=== PATIENT | female | born 1970 | race Two or more races ===

== ENCOUNTER 2018-06-17 18:21 | Emergency (ER) | payer MEDICAID ==
[~2018-06-17] VITALS: Ht 160 cm; Wt 71.7 kg
[2018-06-17 18:31] VITALS: BP 137/73
[2018-06-17] MEDS ORDERED: ACETAMINOPHEN EXTRA STRENGTH 500 MG TAB PO ONE (18:35)
[2018-06-17] MEDS ORDERED: KETOROLAC 30 MG/ML VIAL IVP ONE (18:55)
[2018-06-17 19:13] LABS: BASOPHILS % (AUTO) 0.1 % (0.0-2.0); EOSINOPHILS % (AUTO) 0.3 % (0.0-4.0); HEMOGLOBIN 11.6 g/dL (12.0-16.0); LYMPHOCYTES # (AUTO) 0.3 K/uL (2.5-16.5); LYMPHOCYTES % (AUTO) 2.8 % (20.5-51.1); MEAN CORPUSCULAR HEMOGLOBIN 28 pg (27-31); MEAN CORPUSCULAR HGB CONC 33 g/dL (33-37); MONOCYTES # (AUTO) 0.4 K/uL (0.8-1.0); MONOCYTES % (AUTO) 3.9 % (1.7-9.3); NEUTROPHILS # (AUTO) 9.2 K/uL (1.8-7.7); NEUTROPHILS % (AUTO) 92.9 % (42.2-75.2); PLATELET COUNT (AUTO) 121 K/uL (140-450); RED BLOOD CELL COUNT(AUTO) 4.08 MIL/uL (4.20-5.40); RED CELL DISTRIBUTION WIDTH 13.4 % (11.6-13.7); WHITE BLOOD COUNT (AUTO) 9.9 K/uL (4.8-10.8)
[2018-06-17 19:21] LABS: CREATININE 1.7 mg/dL (0.6-1.3)
[2018-06-17 19:27] LABS: ALBUMIN 3.2 g/dL (3.4-5.0); TOTAL BILIRUBIN 0.5 mg/dL (0.0-1.0)
--- NOTE | 2018-06-17 19:35 | NUR ---
Dr. Mcghee evaluating patient at bedside.
--- NOTE | 2018-06-17 19:35 | NUR ---
PT TO ED WITH C/O LLQ ABD PAIN RADIATING TO LOWER BACK X 2 DYAS. PT REPORTS PAIN INTERMITTENT. NO ABD DISTENTION. BOWEL SOUNDS ACTIVE. DENIES PAIN ON PALPATION. PT PLACED INTO BED, PENDING MD FAUSTIN.
--- NOTE | 2018-06-17 20:20 | NUR ---
PT REPORTS RELIEF S/P TORADOL ADMIN. WILL CONTINUE TO MONITOR AND ASSESS.
--- NOTE | 2018-06-17 20:27 | NUR ---
Kirsten rivas in [facility] - 06/17/18 at 2028 by JOJO PT TAKEN TO BED 7
--- NOTE | 2018-06-17 20:28 | NUR ---
PT TAKEN TO CT
--- NOTE | 2018-06-17 20:38 | NUR ---
PT RETURN FROM CT
[2018-06-17 20:51] LABS: APPEARANCE,URINE CLEAR (CLEAR); BILIRUBIN,URINE NEGATIVE (NEGATIVE); BLOOD, URINE 1+ (NEGATIVE); COLOR,URINE YELLOW (YELLOW); LEUKOCYTE ESTERASE ,URINE 2+ (NEGATIVE); NITRITE, URINE NEGATIVE (NEGATIVE); PH,URINE 6.5 (5.0-9.0); UGLUCOSE NEGATIVE (NEGATIVE)
[2018-06-17 21:09] LABS: RBC,URINE 0-5 /HPF (0-5); WBC,URINE >25 (MANY) /HPF (0-5)
[2018-06-17] MEDS ORDERED: cefTRIAXone 1,000 MG VIAL ONE (21:34)
[2018-06-17 21:58] VITALS: BP 129/74
--- NOTE | 2018-06-17 21:58 | NUR ---
Patient discharged with v/s stable. Written and verbal after care instructions given and explained. Patient alert, oriented and verbalized understanding of instructions. Ambulatory with steady gait. All questions addressed prior to discharge. ID band removed. Patient advised to follow up with PMD. Rx of MACROBID, MOTRIN given. Patient educated on indication of medication including possible reaction and side effects. Opportunity to ask questions provided and answered.
== END 2018-06-17 21:58 | disposition home or self-care (01) ==
LOC: MED 18:21
DX: N39.0 Urinary tract infection, site not specified (principal); E78.5 Hyperlipidemia, unspecified; E11.9 Type 2 diabetes mellitus without complications; I10 Essential (primary) hypertension
CPT/HCPCS: 36415; 74176; 80053; 81001; 81025; 83605; 85025; 87040; 87086; 96365; 96375; 99283; J0696; J1885; 87186

== ENCOUNTER 2021-01-24 13:57 | Inpatient (IN) | payer OTHER ==
[~2021-01-24] VITALS: Ht 160 cm; Wt 73.5 kg
[2021-01-24 14:00] VITALS: BP 168/75
--- NOTE | 2021-01-24 14:07 | NUR ---
PT AMBULATED TO ER BED 11 WITH WALKER ASSISTANCE.
--- NOTE | 2021-01-24 14:17 | NUR ---
50 Y/O FEMALE C/O LEFT FOOT DISCOMFORT X 4 DAYS. PT NOTED TO HAVE REDNESS AND OPEN WOUND WITH YELLOW DISCOLORATION. PT STATES SHE SAW KENO WRITER [id number] AND TOLD SHE HAD NO INFECTION AT THE TIME. DENIES FEVER/CHILLS. DENIES N/V/D. PMH: HLD, HTN, DM NKA
[2021-01-24] MEDS ORDERED: cefTRIAXone 2,000 MG in DEXTROSE 5% 100 ML IV ONE (14:20)
[2021-01-24] MEDS ORDERED: VANCOMYCIN 1,000 MG in DEXTROSE 5% 250 ML IV ONE (14:20)
--- NOTE | 2021-01-24 14:22 | NUR ---
NETWORK ARCHITECT AT PT BEDSIDE.
[2021-01-24] MEDS ORDERED: NACL 0.9% 1,000 ML IV ONE (14:25)
--- NOTE | 2021-01-24 14:39 | NUR ---
MANAGER TELECOM AT PT BEDSIDE.
[2021-01-24 15:04] LABS: BASOPHILS % (AUTO) 0.4 % (0.0-2.0); EOSINOPHILS # (AUTO) 0.1 K/uL (0-0.4); HEMATOCRIT 35.3 % (36-48); HEMOGLOBIN 11.6 g/dL (12.0-16.0); LYMPHOCYTES # (AUTO) 0.8 K/uL (2.5-16.5); MEAN CORPUSCULAR HEMOGLOBIN 27 pg (27-31); MEAN CORPUSCULAR HGB CONC 33 g/dL (33-37); MEAN CORPUSCULAR VOLUME 81.7 fL (80-94); MONOCYTES # (AUTO) 0.4 K/uL (0.8-1.0); MONOCYTES % (AUTO) 3.2 % (1.7-9.3); NEUTROPHILS % (AUTO) 88.4 % (42.2-75.2); PLATELET COUNT (AUTO) 259 K/uL (140-450); RED BLOOD CELL COUNT(AUTO) 4.32 MIL/uL (4.20-5.40); RED CELL DISTRIBUTION WIDTH 15.3 % (11.6-13.7); WHITE BLOOD COUNT (AUTO) 11.3 K/uL (4.8-10.8)
--- NOTE | 2021-01-24 15:17 | NUR ---
IV 20GA RT HAND, BLOOD/UA SENT TO LAB X2 BLOOD FOR C&S, NSR W/O ECT, VSS, AT THS TIME.
[2021-01-24] MEDS ORDERED: cefTRIAXone 2,000 MG VIAL ONE (15:20)
[2021-01-24 15:26] LABS: ALBUMIN 3.7 g/dL (3.4-5.0); ANION GAP 16.5 (8-16); CARBON DIOXIDE 24.8 mmol/L (21-32); CREATININE 1.1 mg/dL (0.6-1.3); POTASSIUM 4.3 mmol/L (3.5-5.1); TOTAL BILIRUBIN 0.7 mg/dL (0.0-1.0)
[2021-01-24] MEDS ORDERED: VANCOMYCIN 1,000 MG VIAL ONE (15:40)
[2021-01-24] MEDS ORDERED: ALBU117P INH (16:28)
[2021-01-24] MEDS ORDERED: MONT10TA35 PO (16:28)
[2021-01-24] MEDS ORDERED: OMEP20EC11 PO (16:28)
[2021-01-24] MEDS ORDERED: BECL10.62 INH (16:28)
[2021-01-24] MEDS ORDERED: ENAL-197 PO (16:28)
[2021-01-24] MEDS ORDERED: AZEL137S8 NS (16:28)
[2021-01-24] MEDS ORDERED: ATOR40TA PO (16:28)
[2021-01-24] MEDS ORDERED: FURO-572 PO (16:28)
[2021-01-24] MEDS ORDERED: FERR325E14 PO (16:28)
[2021-01-24] MEDS ORDERED: CARV25TA PO (16:28)
[2021-01-24] MEDS ORDERED: INSU100V3 SQ (16:28)
[2021-01-24] MEDS ORDERED: GABA300C PO (16:28)
[2021-01-24] MEDS ORDERED: GLIP5TER PO (16:28)
[2021-01-24] MEDS ORDERED: MEDR5TAB PO (16:28)
[2021-01-24] MEDS ORDERED: ACET-10509 PO (16:28)
[2021-01-24] MEDS ORDERED: ASPI-1822 PO (16:28)
[2021-01-24] MEDS ORDERED: DOCU-299 PO (16:28)
[2021-01-24] MEDS ORDERED: INSU3SUS16 SC (16:28)
--- NOTE | 2021-01-24 17:00 | NUR ---
PT RESTING, VISIBLE EQUAL RISE AND FALL OF CHEST, VSS, WILL CONTINUE TO MONITOR.
[2021-01-24] MEDS ORDERED: MORPHINE SULFATE 4 MG/ML SYR IVP ONE (18:10)
[2021-01-24] MEDS ORDERED: ONDANSETRON 4 MG/2 ML VIAL IVP ONE (18:10)
[2021-01-24] MEDS ORDERED: MORPHINE SULFATE 4 MG/ML SYR ONE (18:11)
--- NOTE | 2021-01-24 19:17 | NUR ---
REPORT RECEIVED FROM BRITT VILLAVICENCIO FOR CONTINUITY OF PT CARE AT THIS TIME.
--- NOTE | 2021-01-24 19:35 | NUR ---
GAVE REPORT TO BRITT CARDOZO. TRANSFER OF CARE AT THIS TIME.
[2021-01-24] MEDS ORDERED: ACETAMINOPHEN 325 MG TAB PO PRN (19:50)
[2021-01-24] MEDS ORDERED: VANCOMYCIN PER PHARMACY MC PRN (20:00)
[2021-01-24] MEDS ORDERED: DEXTROSE 50% 50 ML SYR IVP PRN (20:05)
--- NOTE | 2021-01-24 20:13 | NUR ---
PT LAYING SUPINE IN BED LOCKED INLOWEST POSITION W X2 SIDERAILS UP FOR PT SAFETY. PT REPORTS PAIN IMPROVEMENT TO 5/10. PT REPORTS FEELING BETTER,REQUESTS A SECOND BLANKET. SECOND BLANKET PROVIDED. VSS. BREATHING EVEN AND UNLABORED. NAD NOTED, WILL CONTINUE TO MONITOR.
[2021-01-24] MEDS: NACL 0.9% 1,000 ML IV SCH (21:09)
[2021-01-24] MEDS: BLOOD GLUCOSE MONITORING 1 DEV DEV FS SCH (21:12)
--- NOTE | 2021-01-24 23:37 | NUR ---
PT APPEARS TO BE RESTING W EYES CLOSED SUPINE, BED LOCKED IN LOWEST POSITION, X1 SIDERAIL UP. BREATHING EVEN AND UNLABORED. VSS. NAD NOTED, WILL CONTINUE TO MONITOR.
--- NOTE | 2021-01-25 01:23 | NUR ---
PT AMBULATED TO BATHROOM W STEADY GAIT, HOLDING IV POLE.
--- NOTE | 2021-01-25 01:50 | NUR ---
PT C/O 7/10 L FOOT PAIN + NAUSEA. PT DOES NOT WANT MORPHINE, PT REQUESTING ZOFRAN AND TYLENOL. PT MEDICATED FOR PAIN AND NAUSEA.
[2021-01-25] MEDS: ONDANSETRON 4 MG/2 ML VIAL IVP PRN ×3 (01:59→22:02)
[2021-01-25] MEDS ORDERED: VANCOMYCIN 1GM/DEXT 5% PREMIX 200 ML IV SCH (02:00)
[2021-01-25] MEDS ORDERED: VANCOMYCIN 1,000 MG VIAL ONE (02:15)
--- NOTE | 2021-01-25 04:05 | NUR ---
PT REPORTS PAIN AND NAUSEA IMPROVEMENT AT THIS TIME. PT REPORTS PAIN AT IV SITE TO R HAND AND WANTS IT REMOVED. IV REMOVED, CATHETER INTACT. NEW IV ESTABLISHED TO R FOREARM 20G.
--- NOTE | 2021-01-25 06:02 | NUR ---
PT APPEARS TO BE RESTING W EYES CLOSED IN SUPINE POSITION W BREATHING EVEN AND UNLABORED. BED LOCKED IN LOWEST POSITION W X1 SIDERAIL UP HOB SLIGHTLY ELEVATED. VSS. NAD NOTED, WILL CONTINUE TO MONITOR.
[2021-01-25] MEDS: NACL 0.9% 1,000 ML IV SCH ×3 (06:46→19:50)
[2021-01-25 07:03] LABS: BASOPHILS # (AUTO) 0.1 K/uL (0.00-0.22); BASOPHILS % (AUTO) 0.6 % (0.0-2.0); EOSINOPHILS # (AUTO) 0.1 K/uL (0-0.4); EOSINOPHILS % (AUTO) 0.8 % (0.0-4.0); HEMATOCRIT 29.8 % (36-48); LYMPHOCYTES # (AUTO) 1.1 K/uL (2.5-16.5); MEAN CORPUSCULAR HEMOGLOBIN 27 pg (27-31); MEAN CORPUSCULAR HGB CONC 34 g/dL (33-37); MEAN CORPUSCULAR VOLUME 81.1 fL (80-94); MONOCYTES # (AUTO) 0.5 K/uL (0.8-1.0); MONOCYTES % (AUTO) 4.6 % (1.7-9.3); PLATELET COUNT (AUTO) 233 K/uL (140-450); RED BLOOD CELL COUNT(AUTO) 3.68 MIL/uL (4.20-5.40); RED CELL DISTRIBUTION WIDTH 15.1 % (11.6-13.7); WHITE BLOOD COUNT (AUTO) 10.7 K/uL (4.8-10.8)
--- NOTE | 2021-01-25 07:16 | NUR ---
Pt report given to BRITT HEWITT AND DUSTY CHÁVEZ. Transfer of care at this time.
[2021-01-25 07:21] LABS: ANION GAP 15.6 (8-16); CARBON DIOXIDE 21.7 mmol/L (21-32); CREATININE 0.9 mg/dL (0.6-1.3); POTASSIUM 4.3 mmol/L (3.5-5.1)
--- NOTE | 2021-01-25 07:22 | NUR ---
REPORT RECIEVED FROM BRITT CARDOZO FOR TRANSFER OF CARE
--- NOTE | 2021-01-25 07:23 | NUR ---
REPORT RECEIVED FROM BRITT CARDOZO FOR CONTINUITY OF CARE.
[2021-01-25] MEDS: BLOOD GLUCOSE MONITORING 1 DEV DEV FS SCH ×4 (07:42→21:00)
[2021-01-25] MEDS: INSULIN LISPRO SLIDING SCALE 100 UNITS/ML VIAL SUBQ PRN ×4 (07:51→21:55)
[2021-01-25] MEDS: ENOXAPARIN 40 MG/0.4 ML SYR SUBQ SCH (09:06)
--- NOTE | 2021-01-25 09:07 | NUR ---
PATIENT IS EATING IN BED, NO DISTRESS NOTED ALL NEEDS MET AT THIS TIME.
--- NOTE | 2021-01-25 09:24 | NUR ---
DR GRAY EVALUATING PT AT BEDSIDE
--- NOTE | 2021-01-25 11:48 | NUR ---
Patient will be admitted to care of DR. GRAY. Admited to TELE. Will go to room 118. Belongings list completed. Report to BRITT ALFRED . Addendum: 01/25/21 at 1212 by [email or web address] PATIENT TAKEN VIA FELICIA, ACCOMPANIED BY KISHAN MEDRANO.
--- NOTE | 2021-01-25 12:35 | NUR ---
DR LARSON, PODIATRY AT BEDSIDE PREPARING PATIENT FOR I&D
[2021-01-25 12:43] LABS: MAGNESIUM 1.8 mg/dL (1.8-2.4); PHOSPHORUS 3.4 mg/dL (2.5-4.9)
[2021-01-25 12:45] VITALS: BP 150/75
[2021-01-25] MEDS: VANCOMYCIN 1,000 MG in DEXTROSE 5% 250 ML IV SCH (13:25)
--- NOTE | 2021-01-25 14:58 | NUR ---
PT COMPLAINED OF NAUSEA. ADMINISTERED ZOFRAN PRN PER MD ORDERED
--- NOTE | 2021-01-25 15:30 | NUR ---
PATIENT HAS BEEN SCREENED AND CATEGORIZED MODERATE NUTRITION RISK. PATIENT WILL BE SEEN WITHIN 3-5 DAYS OF ADMISSION. 01/25/21 01/29/21 REFERRAL RECEIVED NOT APPLICABLE [address]
[2021-01-25 16:00] VITALS: BP 156/82
--- NOTE | 2021-01-25 16:15 | NUR ---
CHECKED ON PATIENT. PT IS STABLE. NO DISTRESS NOTED. WILL CONTINUE TO MONITOR.
--- NOTE | 2021-01-25 19:40 | NUR ---
ENDORSED TO SURVEY FIELD TECHNICIAN NURSE FOR CONTINUITY OF CARE. PT IS STABLE.
--- NOTE | 2021-01-25 19:45 | NUR ---
RECEIVED REPORT FROM AM NURSE FOR CONTINUITY OF CARE. PT AWAKE, ALERT NO C/O PAIN.RESPIRATIONS EVEN AND UNLABORED. ALL SAFETY MEASURES IN PLACE. WILL CONTINUE TO MONITOR.
[2021-01-25 20:00] VITALS: BP 156/78
--- NOTE | 2021-01-25 21:50 | NUR ---
PT HAD SOME FACIAL GRIMACING. C/O NAUSEA. MEDICATED WITH ZOFRAN PRN. CALL LIGHT WITHIN REACH. ALL SAFETY MEASURES IN PLACE.
[2021-01-26] VITALS: BP 138/69
[2021-01-26] MEDS ORDERED: PIPERACILLIN/TAZOBACTAM 3.375 GM VIAL IV ONE ×2 (00:14→06:05)
[2021-01-26] MEDS: MORPHINE SULFATE 2 MG/ML SYR IVP PRN ×3 (00:21→20:56)
[2021-01-26] MEDS: PIPERACILLIN/TAZOBACTAM 3.375 GM in DEXTROSE 5% 50 ML IV SCH ×5 (00:44→23:35)
--- NOTE | 2021-01-26 01:03 | NUR ---
PT AWAKE UP TO BATHROOM WITH WALKER AND I PERSON ASSIST. SCHEDULED ABX HUNG. NO C/O PAIN OR DISTRESS. CALL LIGHT WITHIN REACH. ALLSAFETY MEASURES IN PLACE.
--- NOTE | 2021-01-26 03:00 | NUR ---
VANCOCIN HUNG AND RUNNING ORDERED.
[2021-01-26] MEDS: VANCOMYCIN 1,000 MG in DEXTROSE 5% 250 ML IV SCH ×2 (03:41→14:37)
[2021-01-26] MEDS: NACL 0.9% 1,000 ML IV SCH ×3 (03:50→23:34)
[2021-01-26 04:00] VITALS: BP 134/66
--- NOTE | 2021-01-26 06:45 | NUR ---
PT C/O CURRENT IV SITE NEW IV SITE 22G ON LEFT F/A PROVIDED. PT GIVEN MORPHINE FOR LEFT FOOT. ZOSYN HUNG AND RUNNING ORDERED. V/S STABLE. PT FINGERSTICK TAKEN HUMALOG COVERAGE PROVIDED. ALL ORDERED PRECAUTIONS IN PLACE
[2021-01-26] MEDS: INSULIN LISPRO SLIDING SCALE 100 UNITS/ML VIAL SUBQ PRN ×3 (07:13→21:10)
[2021-01-26] MEDS: BLOOD GLUCOSE MONITORING 1 DEV DEV FS SCH ×4 (07:15→21:07)
[2021-01-26 07:28] LABS: BASOPHILS % (AUTO) 0.3 % (0.0-2.0); EOSINOPHILS # (AUTO) 0.1 K/uL (0-0.4); EOSINOPHILS % (AUTO) 1.4 % (0.0-4.0); HEMATOCRIT 28.7 % (36-48); HEMOGLOBIN 9.7 g/dL (12.0-16.0); MEAN CORPUSCULAR HEMOGLOBIN 27 pg (27-31); MEAN CORPUSCULAR HGB CONC 34 g/dL (33-37); MEAN CORPUSCULAR VOLUME 81.2 fL (80-94); MONOCYTES # (AUTO) 0.5 K/uL (0.8-1.0); MONOCYTES % (AUTO) 6.8 % (1.7-9.3); NEUTROPHILS # (AUTO) 6.2 K/uL (1.8-7.7); NEUTROPHILS % (AUTO) 78.5 % (42.2-75.2); PLATELET COUNT (AUTO) 229 K/uL (140-450); RED BLOOD CELL COUNT(AUTO) 3.53 MIL/uL (4.20-5.40); RED CELL DISTRIBUTION WIDTH 14.9 % (11.6-13.7); WHITE BLOOD COUNT (AUTO) 7.9 K/uL (4.8-10.8)
--- NOTE | 2021-01-26 07:40 | NUR ---
RECEIVED PATIENT REPORT FROM QUALITY SPECIALIST NURSE FOR CONTINUITY OF CARE. AOX4, RESPIRATIONS EVEN AND UNLABORED. NO DISTRESS NOTED. S/P I&D ON THE LEFT FOOT. PODIATRY IS FOLLOWING. IV SITE ON RFA 20G AND LFA 22G INTACT AND PATENT. PLAN OF CARE DISCUSSED. ISOLATION PRECAUTIONS IN PLACE. SAFETY PRECAUTIONS IN PLACE. CALL LIGHT WITHIN REACH. WILL CONTINUE TO MONITOR.
[2021-01-26 07:52] LABS: ANION GAP 12.8 (8-16); CARBON DIOXIDE 25.6 mmol/L (21-32); CREATININE 0.9 mg/dL (0.6-1.3); POTASSIUM 4.4 mmol/L (3.5-5.1)
[2021-01-26 08:00] VITALS: BP 123/62
--- NOTE | 2021-01-26 08:31 | NUR ---
NUCLEAR MED TECH AT BEDSIDE TO TRANSFER PATIENT FOR BONE SCAN PROCEDURE.
--- NOTE | 2021-01-26 08:32 | NUR ---
WOUND CARE NURSE AT BEDSIDE.
--- NOTE | 2021-01-26 08:34 | NUR ---
WOUND CARE CONSULT NOT DONE. PT. SEEN BY IN HOUSE PODIATRY TEAM.
[2021-01-26] MEDS ORDERED: PROPOFOL 200 MG/20 ML VIAL IV ONE (09:21)
[2021-01-26] MEDS: ENOXAPARIN 40 MG/0.4 ML SYR SUBQ SCH (09:53)
--- NOTE | 2021-01-26 10:00 | NUR ---
ALL SCHEDULED MEDS GIVEN. PT IS STABLE. NO DISTRESS NOTED. WILL CONTINUE TO MONITOR.
--- NOTE | 2021-01-26 10:00 | NUR ---
ECHOCARDIOGRAM IS BEING DONE ON PATIENT.
[2021-01-26 12:00] VITALS: BP 164/83
--- NOTE | 2021-01-26 12:50 | NUR ---
SPOKE TO DR. GARCIA AND SHE MENTIONED THAT PATIENT WILL BE HAVING A PROCEDURE AT OR TODAY.
--- NOTE | 2021-01-26 14:00 | NUR ---
NUCLEAR MED TECH AT BEDSIDE.
[2021-01-26 16:00] VITALS: BP 159/77
--- NOTE | 2021-01-26 16:45 | NUR ---
CHECKED ON PATIENT. PT IS STABLE. NO DISTRESS NOTED. WILL CONTINUE TO MONITOR.
[2021-01-26] MEDS: ONDANSETRON 4 MG/2 ML VIAL IVP PRN (18:56)
--- NOTE | 2021-01-26 19:50 | NUR ---
ENDORSED TO SECRETARIAL TEACHER NURSE FOR CONTINUITY OF CARE. PT IS STABLE.
[2021-01-26 20:00] VITALS: BP 137/69
--- NOTE | 2021-01-26 20:00 | NUR ---
Received patient from AM shift nurse. Patient is AA&O4 able to make needs known, denies chest pain or SOB. Chest rise is even and unlabored with CTA on RA. Normal heart sounds present. Active bowel sounds x4, denies pain with palpation. Wound is noted on Left foot that is wrapped clean dry and intact. Patient is pending a surgical procedure for her foot on AM shift and will be NPO at midnight. Call light is within reach, bed is locked in the lowest position with bed rails up. Will continue to monitor throughout the shift.
[2021-01-27] VITALS: BP 110/53
[2021-01-27] MEDS: VANCOMYCIN 1,000 MG in DEXTROSE 5% 250 ML IV SCH (02:00)
[2021-01-27] MEDS: NACL 0.9% 1,000 ML IV SCH ×3 (03:50→20:16)
[2021-01-27 04:00] VITALS: BP 128/67
[2021-01-27 05:38] LABS: BASOPHILS # (AUTO) 0.1 K/uL (0.00-0.22); BASOPHILS % (AUTO) 0.7 % (0.0-2.0); EOSINOPHILS # (AUTO) 0.1 K/uL (0-0.4); EOSINOPHILS % (AUTO) 1.5 % (0.0-4.0); HEMATOCRIT 28.2 % (36-48); HEMOGLOBIN 9.6 g/dL (12.0-16.0); LYMPHOCYTES # (AUTO) 0.8 K/uL (2.5-16.5); LYMPHOCYTES % (AUTO) 8.7 % (20.5-51.1); MEAN CORPUSCULAR HEMOGLOBIN 28 pg (27-31); MEAN CORPUSCULAR HGB CONC 34 g/dL (33-37); MEAN CORPUSCULAR VOLUME 81.2 fL (80-94); MONOCYTES # (AUTO) 0.6 K/uL (0.8-1.0); MONOCYTES % (AUTO) 6.5 % (1.7-9.3); NEUTROPHILS # (AUTO) 7.7 K/uL (1.8-7.7); NEUTROPHILS % (AUTO) 82.6 % (42.2-75.2); PLATELET COUNT (AUTO) 240 K/uL (140-450); RED BLOOD CELL COUNT(AUTO) 3.47 MIL/uL (4.20-5.40); WHITE BLOOD COUNT (AUTO) 9.3 K/uL (4.8-10.8)
[2021-01-27 05:47] LABS: ANION GAP 14.3 (8-16); CARBON DIOXIDE 23.5 mmol/L (21-32); CREATININE 1.4 mg/dL (0.6-1.3); POTASSIUM 3.8 mmol/L (3.5-5.1)
[2021-01-27] MEDS: PIPERACILLIN/TAZOBACTAM 3.375 GM in DEXTROSE 5% 50 ML IV SCH ×3 (05:57→17:47)
[2021-01-27] MEDS: BLOOD GLUCOSE MONITORING 1 DEV DEV FS SCH ×5 (06:31→20:21)
[2021-01-27 08:00] VITALS: BP 150/74
[2021-01-27] MEDS ORDERED: LIDOCAINE 1% 500 MG/50 ML VIAL ONE (08:33)
[2021-01-27] MEDS ORDERED: BUPIVACAINE-MPF 0.25% 30 ML VIAL INJ ONE (08:33)
[2021-01-27] MEDS ORDERED: BUPIVACAINE-MPF 0.5% 30 ML VIAL INJ ONE ×2 (08:38)
[2021-01-27] MEDS: ENOXAPARIN 40 MG/0.4 ML SYR SUBQ SCH (08:59)
--- NOTE | 2021-01-27 09:00 | NUR ---
Lovenox not administered. Patient off unit for procedure.
[2021-01-27] MEDS ORDERED: ONDANSETRON 4 MG/2 ML VIAL ONE (09:33)
[2021-01-27] MEDS ORDERED: fentaNYL citrate 0.05 MG/ML VIAL ONE (09:33)
[2021-01-27] MEDS ORDERED: METOCLOPRAMIDE 10 MG/2 ML INJ VIAL ONE (09:33)
[2021-01-27] MEDS: INSULIN LISPRO SLIDING SCALE 100 UNITS/ML VIAL SUBQ PRN ×4 (10:51→20:28)
--- NOTE | 2021-01-27 11:20 | NUR ---
Patient came back from OR. Bilateral foot dressings clean, dry, and intact.
[2021-01-27 12:00] VITALS: BP 156/74
[2021-01-27] MEDS: MORPHINE SULFATE 2 MG/ML SYR IVP PRN (15:21)
[2021-01-27 16:00] VITALS: BP 134/62
[2021-01-27] MEDS: HYDROcodone/APAP 5/325 MG 1 TAB TAB PO PRN ×2 (18:03→22:25)
[2021-01-27 20:00] VITALS: BP 123/66
--- NOTE | 2021-01-27 20:00 | NUR ---
RECEIVED BEDSIDE REPORT FROM DAY RN FOR CONTINUITY OF CARE . PT LAYING IN BED WATCHING TV DURING ROUNDS. PT NOT IN ANY DISTRESS AND NO COMPLAIN AT THIS TIME. BILATERAL FOOT DRESSINGS BOTH C/D/I. IVF INFUSING ORDERED. VSS, AFEBRILE, SATING 100% ON RA. SR ON COUTURE ALTERATIONS DRESSMAKER, HR-90. FALL PRECAUTION IMPLEMENTED. INSTRUCTED THE PT TO CALL FOR ASSISTANCE AT ALL TIMES. PT VERBALIZED UNDERSTANDING WITH THE POC. CALL LIGHT WITHIN REACH. WILL CONTINUE POC AND MONITORING.
[2021-01-27] MEDS: METOPROLOL 25 MG TAB PO SCH (20:18)
--- NOTE | 2021-01-27 22:00 | NUR ---
ALL DUE MEDS GIVEN AND PT TOLERATED IT WELL. NO COMPLAIN FROM THE PT. NO ADVERSE DRUG REACTION NOTED. WILL CONTINUE TO OBSERVE.
[2021-01-28] VITALS: BP 102/56
--- NOTE | 2021-01-28 | NUR ---
PT VITAL SIGNS STABLE, AFEBRILE, SATING 100% ON RA. SR ON FILLING SEPARATOR, HR- 83. NOT IN ANY DISTRESS AND NO COMPLAIN AT THIS TIME. CALL LIGHT WITHIN REACH. WILL CONTINUE OBSERVATION.
[2021-01-28] MEDS: PIPERACILLIN/TAZOBACTAM 3.375 GM in DEXTROSE 5% 50 ML IV SCH ×3 (00:22→13:55)
--- NOTE | 2021-01-28 02:00 | NUR ---
PT ASLEEP. VISIBLE CHEST RISE AND FALL NOTED. NOT IN ANY DISTRESS. SAFETY MEASURES IN PLACE. WILL CONTINUE TO OBSERVE.
[2021-01-28 04:00] VITALS: BP 118/57
--- NOTE | 2021-01-28 04:00 | NUR ---
PT VITAL SIGNS STABLE, AFEBRILE, SATING 100% ON RA. SR ON STUDENT SERVICES REP, HR- 85. NOT IN ANY DISTRESS AND NO COMPLAIN AT THIS TIME. CALL LIGHT WITHIN REACH. WILL CONTINUE OBSERVATION.
[2021-01-28] MEDS: NACL 0.9% 1,000 ML IV SCH ×2 (04:48→11:50)
--- NOTE | 2021-01-28 06:00 | NUR ---
NO ACUTE EVENT THROUGHOUT THE NIGHT. PATIENT STABLE NO SIGN AND SYMPTOMS OF DISTRESS NOTED. NO COMPLAIN AT THIS TIME. ALL NEEDS ATTENDED. CALL LIGHT WITHIN REACH. WILL ENDORSE THE PATIENT TO THE ONCOMING RN FOR CONTINUITY OF CARE.
[2021-01-28] MEDS: ONDANSETRON 4 MG/2 ML VIAL IVP PRN (06:22)
[2021-01-28] MEDS: BLOOD GLUCOSE MONITORING 1 DEV DEV FS SCH ×2 (06:32→11:30)
[2021-01-28 06:48] LABS: BASOPHILS % (AUTO) 0.5 % (0.0-2.0); EOSINOPHILS # (AUTO) 0.2 K/uL (0-0.4); EOSINOPHILS % (AUTO) 2.4 % (0.0-4.0); HEMATOCRIT 25.2 % (36-48); HEMOGLOBIN 8.5 g/dL (12.0-16.0); LYMPHOCYTES % (AUTO) 11.3 % (20.5-51.1); MEAN CORPUSCULAR HEMOGLOBIN 28 pg (27-31); MEAN CORPUSCULAR HGB CONC 34 g/dL (33-37); MEAN CORPUSCULAR VOLUME 82.3 fL (80-94); MONOCYTES # (AUTO) 0.5 K/uL (0.8-1.0); MONOCYTES % (AUTO) 5.4 % (1.7-9.3); NEUTROPHILS # (AUTO) 7.3 K/uL (1.8-7.7); NEUTROPHILS % (AUTO) 80.4 % (42.2-75.2); PLATELET COUNT (AUTO) 218 K/uL (140-450); RED BLOOD CELL COUNT(AUTO) 3.06 MIL/uL (4.20-5.40); RED CELL DISTRIBUTION WIDTH 14.8 % (11.6-13.7); WHITE BLOOD COUNT (AUTO) 9.1 K/uL (4.8-10.8)
--- NOTE | 2021-01-28 07:10 | NUR ---
RECEIVE REPORT FROM SEGMENTAL PAVER INSTALLER NURSE FOR CONTINUITY OF PATIENT CARE. PATIENT SLEEPING. NO ACUTE DISTRESS NOTED. BREATHING EVEN AND UNLABORED. ROOM AIR. CALL LIGHT WITHIN REACH. ALL SAFETY MEASURES IN PLACE. WILL CONTINUE TO MONITOR.
[2021-01-28 07:19] LABS: ANION GAP 14.7 (8-16); CARBON DIOXIDE 21.2 mmol/L (21-32); CREATININE 1.4 mg/dL (0.6-1.3); POTASSIUM 3.9 mmol/L (3.5-5.1)
[2021-01-28 08:00] VITALS: BP 150/73
--- NOTE | 2021-01-28 08:04 | NUR ---
ENDORSED PT TO DAY RN FOR CONTINUITY OF CARE. PATIENT STABLE. SIGNING OFF.
[2021-01-28] MEDS: METOPROLOL 25 MG TAB PO SCH (09:07)
[2021-01-28] MEDS: ENOXAPARIN 40 MG/0.4 ML SYR SUBQ SCH (09:08)
--- NOTE | 2021-01-28 09:09 | NUR ---
PATIENT AWAKE AND ALERT. NO ACUTE DISTRESS NOTED. BREATHING EVEN AND UNLABORED. SCHEDULED MEDICATION GIVEN. PATIENT ROOM AIR. CALL LIGHT WITHIN REACH. ALL SAFETY MEASURES IN PLACE. WILL CONTINUE TO MONITOR.
[2021-01-28] MEDS ORDERED: VANCOMYCIN 1,000 MG in DEXTROSE 5% 250 ML IV SCH (11:00)
--- NOTE | 2021-01-28 11:59 | NUR ---
PATIENT AWAKE AND ALERT. NO ACUTE DISTRESS NOTED. BREATHING EVEN AND UNLABORED. PATIENT ROOM AIR. CALL LIGHT WITHIN REACH. ALL SAFETY MEASURES IN PLACE. WILL CONTINUE TO MONITOR.
[2021-01-28 12:00] VITALS: BP 153/61
--- NOTE | 2021-01-28 12:00 | NUR ---
WOUND CARE EVALUATION NOTES: REASON FOR EVALUATION: BILATERAL FOOT DM ULCERS. WOUND ASSESSMENT COMPLETED ON THIS 50 Y/O MALE ADMITTED TO [facility] UNIT FOR BILATERAL DM FOOT ULCER. PATIENT IS FROM HOME. PAST MEDICAL HISTORY INCLUDES HYPERTENSION, HLD, ASTHMA, DM II. ALL ABOVE INFORMATION WAS OBTAINED FROM THE ADMISSION H&P. LABS ARE WBC 9.1, H/H 8.5/25.2, GLUCOSE 218. PATIENT IS AAOX4, VERBAL, ABLE TO AMBULATE INDEPENDENTLY. SKIN IS WARM TO TOUCH. PLAN OF CARE AND PRESSURE PREVENTATIVE MEASURES DISCUSSED WITH PATIENT AND PRIMARY RN. PATIENT VERBALIZED UNDERSTANDING. PATIENT ADMITTED WITH BILATERAL FOOT DM ULCERS. COMORBIDITIES RELATED TO FURTHER SKIN BREAKDOWN SUCH IMPAIRED OR DECREASED MOBILITY AND DECREASED FUNCTIONAL ABILITY, HISTORY OF DM II. INTEGUMENTARY: - CURRENTLY BEING FOLLOWED AND DRESSING CHANGES BY BED MACHINE OPERATOR. 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 DRESSINGS DRY AND INTACT. BED MACHINE OPERATOR TO CONTINUE TO FOLLOW AND PROVIDE DRESSING CHANGES. - RIGHT FOOT DM ULCER ALSO BEING FOLLOWED AND DRESSINGS CHANGED BY BED MACHINE OPERATOR. RECOMMENDATIONS: - CONTINUE WITH BED MACHINE OPERATOR WOUND CARE RECOMMENDATIONS. - KEEP SKIN DRY AND CLEAN AT ALL TIMES. - RD CONSULT RECOMMENDATIONS DISCUSSED WITH PRIMARY RN. WILL FOLLOW-UP PATIENT Q7-10 DAYS AND PRN. PLEASE CONTACT WOUND CARE NURSE FOR ANY CONCERNS AND CHANGES IN WOUND CONDITION.
[2021-01-28] MEDS: INSULIN LISPRO SLIDING SCALE 100 UNITS/ML VIAL SUBQ PRN (12:35)
--- NOTE | 2021-01-28 13:05 | NUR ---
PATIENT AWAKE AND ALERT. PATIENT WATCHING TV. NO ACUTE DISTRESS NOTED. BREATHING EVEN AND UNLABORED. PATIENT ON ROOM AIR. CALL LIGHT WITHIN REACH. ALL SAFETY MEASURES IN PLACE. WILL CONTINUE TO MONITOR.
[2021-01-28] MEDS: HYDROcodone/APAP 5/325 MG 1 TAB TAB PO PRN (14:23)
--- NOTE | 2021-01-28 15:40 | NUR ---
PATIENT SLEEPING. NO ACUTE DISTRESS NOTED. BREATHING EVEN AND UNLABORED. PATIENT ON ROOM AIR. CALL LIGHT WITHIN REACH. ALL SAFETY MEASURES IN PLACE. WILL CONTINUE TO MONITOR.
[2021-01-28 16:00] VITALS: BP 149/66
--- NOTE | 2021-01-28 17:43 | NUR ---
PATIENT AWAKE AND ALERT. ALL VS STABLE. PATIENT DISCHARGE INFORMATION GIVEN. PATIENT SIGNED ALL DOCUMENTS AND VERBALIZE UNDERSTANDING. IV AND WRISTBAND REMOVED. IV CATHETER INTACT. PATIENT TOOK ALL PERSONAL BELONGINGS. PATIENT TO BE PICKED UP BY . PATIENT WHEELED TO FRONT LOBBY.
== END 2021-01-28 18:23 | disposition home or self-care (01) | DRG 305 ==
LOC: MED 13:57 → MTU 18:56 → UNDOADMIN 18:56 → MMU 19:56 → MTU 01-25 11:46
PROVIDERS: ADMIT Internal Medicine; ATTEND Internal Medicine
PROC: 0JBR0ZZ Excision of Left Foot Subcutaneous Tissue and Fascia, Open Approach (ICD-10-PCS; principal; 2021-01-26)
PROC: 0Y6N0ZD Detachment at Left Foot, Partial 4th Ray, Open Approach (ICD-10-PCS; 2021-01-27)
DX: E11.69 Type 2 diabetes mellitus with other specified complication (principal); M86.8X7 Other osteomyelitis, ankle and foot; L03.116 Cellulitis of left lower limb; E11.00 Type 2 diabetes mellitus with hyperosmolarity without nonketotic hyperglycemic-hyperosmolar coma (NKHHC); E11.42 Type 2 diabetes mellitus with diabetic polyneuropathy; E11.621 Type 2 diabetes mellitus with foot ulcer; L97.519 Non-pressure chronic ulcer of other part of right foot with unspecified severity; L02.612 Cutaneous abscess of left foot; I10 Essential (primary) hypertension; E78.00 Pure hypercholesterolemia, unspecified; L97.529 Non-pressure chronic ulcer of other part of left foot with unspecified severity; Z20.822 Contact with and (suspected) exposure to COVID-19; E78.5 Hyperlipidemia, unspecified; I34.0 Nonrheumatic mitral (valve) insufficiency; J45.909 Unspecified asthma, uncomplicated; Z90.49 Acquired absence of other specified parts of digestive tract; Z98.891 History of uterine scar from previous surgery; Z79.82 Long term (current) use of aspirin; Z79.899 Other long term (current) drug therapy
CPT/HCPCS: 36415; 71045; 73620; 73630; 78315; 80048; 80053; 80202; 82009; 82948; 83036; 83735; 83880; 84100; 84484; 85025; 85610; 85651; 86140; 87040; 87070; 87075; 87081; 87102; 87186; 87205; 88305; 88311; 96365; 96367; 96375; 97110; 97112; 97163-GP; 97530; 99285; A9503; J0696; J1650; J2001; J2270; J2405; J2543; J2704; J2765; J3010; J3370; J3490; J7030; J7060; Q0092